=== PATIENT | male | born 1955 ===

== ENCOUNTER 2020-09-10 18:15 | Emergency (ER) | payer SELFPAY ==
[~2020-09-10] VITALS: Ht 167.6 cm; Wt 71.2 kg
--- NOTE | 2020-09-10 19:05 | NUR ---
PT BIBSELF C/O RT ELBOW PAIN S/P LIFTING A TREDMILL. PT AAOX4 BREATHING EVENLY AND UNLABORED. PT STATES THAT HE HAS HAD A RUPTURED BICEP BEFORE AND HE WAS "FREAKED OUT THAT I RUPTURED MY BICEP AGAIN, THATS WHY MY THOUGHT I PASSED OUT". PT ATTACHED TO MONITOR AND POX. SKIN IS WARM, DRY, AND INTACT. PT GIVEN BLANKET AND CALL LIGHT WITHIN REACH.
--- NOTE | 2020-09-10 19:15 | NUR ---
XRAY AT BEDSIDE
--- NOTE | 2020-09-10 19:58 | NUR ---
Patient discharged to home in stable condition. Written and verbal after care instructions given. Patient verbalizes understanding of instruction. PT ambulatory with a steady gait
[2020-09-10 20:18] VITALS: BP 122/84
== END 2020-09-10 19:58 | disposition home or self-care (01) ==
LOC: ER 18:28
DX: S46.211A Strain of muscle, fascia and tendon of other parts of biceps, right arm, initial encounter (principal); R55 Syncope and collapse; Z98.890 Other specified postprocedural states; Z88.6 Allergy status to analgesic agent; W18.39XA Other fall on same level, initial encounter; Y93.89 Activity, other specified; Y92.89 Other specified places as the place of occurrence of the external cause; Y99.8 Other external cause status
CPT/HCPCS: 73080-TC